=== PATIENT | female | born 1980 | race Caucasian/White ===

== ENCOUNTER 2018-08-24 18:19 | Emergency (ER) | payer OTHER ==
[~2018-08-24] VITALS: Ht 149.9 cm; Wt 47.0 kg
[2018-08-24 18:27] VITALS: BP 114/51
[2018-08-24] MEDS ORDERED: SERT100T PO (18:42)
[2018-08-24] MEDS ORDERED: LITH600C PO (18:42)
[2018-08-24] MEDS ORDERED: LURA20TA PO (18:42)
[2018-08-24] MEDS ORDERED: TRAZ-136 PO (18:43)
[2018-08-24] MEDS ORDERED: CLON0.5T PO (18:43)
[2018-08-24] MEDS ORDERED: HYDROcodone/APAP 5/325 TABLET ONE (19:06)
[2018-08-24] MEDS ORDERED: HYDROcodone/APAP 5/325 TABLET PO ONE (19:30)
== END 2018-08-24 20:20 | disposition home or self-care (01) ==
LOC: ED 20:15
DX: S80.02XA Contusion of left knee, initial encounter (principal); S80.211A Abrasion, right knee, initial encounter; V80.010A Animal-rider injured by fall from or being thrown from horse in noncollision accident, initial encounter; Y93.52 Activity, horseback riding; Y99.8 Other external cause status; Y92.009 Unspecified place in unspecified non-institutional (private) residence as the place of occurrence of the external cause
CPT/HCPCS: 29505; 99284

== ENCOUNTER 2018-09-01 06:29 | Emergency (ER) | payer OTHER ==
[~2018-09-01] VITALS: Ht 149.9 cm; Wt 46.8 kg
[~2018-09-01 06:29] MED LIST: CLON0.5T PO; LITH600C PO; LURA20TA PO; SERT100T PO; TRAZ-136 PO
[2018-09-01 06:33] VITALS: BP 123/77
== END 2018-09-01 07:46 | disposition home or self-care (01) ==
LOC: ED 07:18
DX: Z00.00 Encounter for general adult medical examination without abnormal findings (principal); M25.562 Pain in left knee
CPT/HCPCS: 99281

== ENCOUNTER 2018-10-26 13:03 | Emergency (ER) | payer BC ==
[~2018-10-26] VITALS: Ht 152.4 cm; Wt 100.0 kg
[~2018-10-26 13:03] MED LIST changes: -TRAZ-136 PO; +TRAZ50TA66 PO
--- NOTE | 2018-10-26 13:35 | NUR ---
PT BIB AFTER FALLING BACKWARD OFF OF HORSE "LANDING ON HER BACK" PER DAUGHTER. DAUGHTER DENIES LOC, N/V. PT AND DAUGHTER WERE IN THE [place] AND PT WAS ABLE TO GET BACK ON THE HORSE AND RIDE IT OUT OF THE [place]. PT SEEN BY DR. CHAMPION. CT CALLED FOR PT TO GO TO CT STAT PER DR. CHAMPION.
--- NOTE | 2018-10-26 13:50 | NUR ---
REPORT FROM GENARO SARABIA. PT SUPINE W/ C-COLLAR IN PLACE. ALERT/AWAKE/ISAAK/MOVING ALL EXTREMITIES. PT REPORTS STEPHENS, DENIES NEED FOR PAIN MEDICATIONS. BP/SPO2 MONITOR IN PLACE. FAMILY AT BEDSIDE. ALL UPDATED TO POC (RESULTS/RECHECK) AND DEMONSTRATE UNDERSTANDING.
[2018-10-26 14:11] VITALS: BP 125/62
[2018-10-26] MEDS ORDERED: IBUPROFEN 200 MG TABLET ONE (14:36)
--- NOTE | 2018-10-26 14:46 | NUR ---
PT NOW A&OX4, DENIES N/V. REPORTS SLIGHT STEPHENS. MEDICATED PER EMAR W/ MARLON. DC EDUCATION PROVIDED, PT DEMONSTRATES UNDERSTANDING. PT AMBULATED STEADILY TO DC WITH RN AND FAMILY. FAMILY TO TRANSPORT PT HOME.
[2018-10-26] MEDS ORDERED: IBUPROFEN 200 MG TABLET PO ONE (15:00)
== END 2018-10-26 14:49 | disposition home or self-care (01) ==
LOC: ED 14:30
DX: S06.0X0A Concussion without loss of consciousness, initial encounter (principal); R41.0 Disorientation, unspecified; V80.010A Animal-rider injured by fall from or being thrown from horse in noncollision accident, initial encounter; Y93.89 Activity, other specified; Y92.89 Other specified places as the place of occurrence of the external cause; Y99.8 Other external cause status
CPT/HCPCS: 70450; 72125; 99284

== ENCOUNTER 2019-02-02 21:03 | Emergency (ER) | payer BC ==
[~2019-02-02] VITALS: Ht 162.6 cm; Wt 65.0 kg
[2019-02-02 21:13] VITALS: BP 140/72
--- NOTE | 2019-02-02 21:29 | NUR ---
D/C INSTRUCTIONS, MEDS, & F/U APPT RV'WD WITH PT, SHE VERBALIZES UNDERSTANDING. RX GIVEN X2. PT AMBULATED OUT OF ED WITH FAMILY WITHOUT DIFFICULTY.
== END 2019-02-02 21:49 | disposition home or self-care (01) ==
LOC: ED 21:25
DX: G89.29 Other chronic pain (principal); R10.2 Pelvic and perineal pain; Z90.710 Acquired absence of both cervix and uterus
CPT/HCPCS: 99283